=== PATIENT | female | born 1945 | race Caucasian/White ===

== ENCOUNTER 2018-03-12 08:15 | Observation (INO) | payer OTHER ==
[~2018-03-12] VITALS: Ht 161.3 cm; Wt 64.1 kg
[~2018-03-12 08:15] MED LIST: ASPI325T33 PO; ATOR40TA16 PO; LISI-519 PO; VITA100064 PO
[2018-03-12] MEDS ORDERED: ceFAZolin 1,000 MG/NS 100 ML IV SCH ×2 (08:45)
[2018-03-12] MEDS ORDERED: LACTATED RINGER'S 1000 ML IV PRN (08:45)
[2018-03-12] MEDS ORDERED: HEPARIN SODIUM - SQ 10,000 UNITS/ML VIAL SQ SCH (08:45)
[2018-03-12] MEDS ORDERED: METOPROLOL TARTRATE 25 MG TAB PO PRN (08:45)
[2018-03-12] MEDS ORDERED: POVIDONE IODINE 5% (ANTISEPSIS KIT) 4 APPLICATIONS EACH NARE PRN (08:45)
[2018-03-12] MEDS ORDERED: SODIUM CHLORID 0.9% 500 ML IV PRN (08:45)
[2018-03-12] MEDS ORDERED: INSULIN HUMAN REGULAR 1,000 UNITS/10 ML VIAL SQ PRN (08:45)
[2018-03-12] MEDS ORDERED: CHLORHEXIDINE GLUCONATE 2 % 1 PACK (2 CLOTHS) TOPICAL PRN (08:45)
[2018-03-12] MEDS ORDERED: ACETAMINOPHEN 1000 MG/100 ML 100 ML IV ONE (09:21)
[2018-03-12] MEDS ORDERED: HYDROmorphone HCL PF 2 MG/ML VIAL ONE (09:21)
[2018-03-12] MEDS ORDERED: SUGAMMADEX SODIUM 200 MG/2 ML VIAL IV PUSH ONE (09:21)
[2018-03-12] MEDS ORDERED: DEXAMETHASONE SOD PHOS 4 MG/ML VIAL IV ONE (12:00)
[2018-03-12] MEDS ORDERED: KETOROLAC TROMETHAMINE 30 MG/ML (IVP) VIAL IV PUSH ONE (12:00)
[2018-03-12] MEDS ORDERED: ONDANSETRON HCL 4 MG/2 ML VIAL IV ONE (12:00)
[2018-03-12] MEDS ORDERED: ePHEDrine/NS 25 MG/5 ML SYRINGE IV ONE (12:00)
[2018-03-12] MEDS ORDERED: PROPOFOL 200 MG/20 ML AMP IV ONE (12:00)
[2018-03-12] MEDS ORDERED: PHENYLEPH/NS 1000 MCG/10 ML SYR IV ONE (12:00)
[2018-03-12] MEDS ORDERED: ceFAZolin INJ 1,000 MG VIAL IV ONE (12:00)
[2018-03-12] MEDS ORDERED: ROCURONIUM INJ 50 MG/5 ML SYRINGE IV PUSH ONE (12:00)
[2018-03-12] MEDS ORDERED: LIDOCAINE HCL 1% PF 5 ML SYRINGE OTHER ONE (12:00)
[2018-03-12] MEDS ORDERED: SODIUM CHLOR 0.9% 1000 ML INJ 3,000 ML IV ONE (12:00)
[2018-03-12] MEDS ORDERED: LIDOCAINE 1%/EPINEPHrine 1:100,000 SOLN 30 ML VIAL ONE (12:36)
[2018-03-12] MEDS ORDERED: diphenhydrAMINE HCL 25 MG CAP PO PRN (14:00)
[2018-03-12] MEDS ORDERED: oxyCODONE/ACETAMINOPHEN 5 MG/325 MG TAB PO PRN ×2 (14:00)
[2018-03-12] MEDS ORDERED: LORazepam 0.5 MG TAB PO PRN (14:00)
[2018-03-12] MEDS ORDERED: SODIUM CHLORIDE 0.9% FLUSH 10 ML FLUSH IV FLUSH PRN (14:00)
[2018-03-12] MEDS ORDERED: DO NOT ADM ANY ANTICOAGULANT DRUGS PRN (14:01)
[2018-03-12] MEDS ORDERED: ONDANSETRON ODT 4 MG TAB PO PRN (14:30)
[2018-03-12] MEDS: KETOROLAC TROMETHAMINE 30 MG/ML (IVP) VIAL IVP SCH ×2 (14:58→21:06)
[2018-03-12] MEDS: D5-1/2 NS + KCL 20 MEQ INJ 1,000 ML IV SCH (14:59)
[2018-03-12 16:18] VITALS: BP 116/68; PULSE 76; RESP 14; TEMP 97.4; O2SAT 98
[2018-03-12 19:41] VITALS: BP 113/72; PULSE 73; RESP 18; TEMP 97.5; O2SAT 97
[2018-03-12] MEDS: SODIUM CHLORIDE 0.9% FLUSH 10 ML FLUSH IV FLUSH SCH (21:08)
[2018-03-13 00:33] VITALS: BP 99/53; PULSE 76; RESP 16; TEMP 98.3; O2SAT 95
[2018-03-13] MEDS: D5-1/2 NS + KCL 20 MEQ INJ 1,000 ML IV SCH ×2 (00:33→09:53)
[2018-03-13] MEDS: KETOROLAC TROMETHAMINE 30 MG/ML (IVP) VIAL IVP SCH ×2 (02:47→08:14)
[2018-03-13 04:26] VITALS: BP 103/65; PULSE 78; RESP 16; TEMP 98.6; O2SAT 97
[2018-03-13 06:47] LABS: AUTOMATED NEUTROPHIL # 5.9 TH/MM3 (1.8-7.7); BASOPHIL % 0.3 % (0.0-2.0); HEMATOCRIT 32.5 % (35.0-46.0); HEMOGLOBIN 10.9 GM/DL (11.6-15.3); LYMPH % 14.3 % (9.0-44.0); LYMPHOCYTE # 1.1 TH/MM3 (1.0-4.8); MEAN CELL VOLUME 88.2 FL (80.0-100.0); MEAN CORPUSCULAR HEMOGLOBIN 29.6 PG (27.0-34.0); MEAN CORPUSCULAR HGB CONC 33.5 % (32.0-36.0); MEAN PLATELET VOLUME 8.7 FL (7.0-11.0); MONO % 6.4 % (0.0-8.0); MONOCYTE # 0.5 TH/MM3 (0-0.9); PLATELET COUNT 175 TH/MM3 (150-450); RED BLOOD COUNT 3.69 MIL/MM3 (4.00-5.30); RED CELL DISTRIBUTION WIDTH 13.5 % (11.6-17.2); WHITE BLOOD COUNT 7.5 TH/MM3 (4.0-11.0)
[2018-03-13 06:58] LABS: BICARBONATE 24.2 MEQ/L (21.0-32.0); CALCIUM 7.4 MG/DL (8.5-10.1); CREATININE 0.77 MG/DL (0.50-1.00)
[2018-03-13 07:17] LABS: CALCIUM-PROTEIN CORRECTED 8.5 MG/DL (8.5-10.1); TOTAL PROTEIN 5.2 GM/DL (6.4-8.2)
[2018-03-13] MEDS ORDERED: OXYC1TAB63 PO (07:26)
[2018-03-13 08:03] VITALS: BP 112/64; PULSE 75; RESP 18; TEMP 98.6; O2SAT 98
--- NOTE | 2018-03-13 08:05 | MD ---
cc: Mai Rosen MD, Esther MD DATE OF DISCHARGE: 03/13/2018 PROCEDURE: 03/12/2018, robotic-assisted laparoscopic hysterectomy, bilateral salpingo-oophorectomy (with resection of bilateral ovarian masses), extensive lysis of adhesions and ventral herniorrhaphy. HOSPITAL COURSE: She did well in the early postoperative period. She remained hemodynamically stable. She is tolerating oral intake. Perez catheter removed pending voiding. Ins and outs 3300/1975. Labs this morning show an H and H of 10.9 and 32.5. Electrolytes essentially normal, potassium 3.6, creatinine 0.77, protein corrected calcium normal at 8.5. PHYSICAL EXAMINATION: She is afebrile, pulse 73-79, respirations 12-18, blood pressure 99 to 122/53 to 72. O2 saturation greater than or equal to 95%. GENERAL: She is alert in no acute distress. LUNGS: Clear. Mild basilar rales. CARDIOVASCULAR: Regular rate and rhythm. Incisions are clean and dry. ABDOMEN: Nondistended not appreciably tender. GYNECOLOGIC: No bleeding. EXTREMITIES: Nontender. SCDs are intact and in place. ASSESSMENT: Postoperative day number 1, doing well in the early postoperative period. 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 Activities and restrictions reviewed. Questions were asked and answered. She expressed good understanding. PLAN: Anticipate she will reach criteria for discharge to home today. Our office number is again made available. She is to contact your office to schedule a followup in 2 weeks or to contact us sooner should she have any questions or problems. She is to resume prior medications. She will have a prescription for Percocet for pain. Mai Rosen MD KLM/SHANIQUE , 07:31 AM , 08:03 AM
[2018-03-13] MEDS: SODIUM CHLORIDE 0.9% FLUSH 10 ML FLUSH IV FLUSH SCH (08:14)
--- NOTE | 2018-03-13 08:27 | MP ---
cc: Mai Rosen MD, Esther MD DATE OF OPERATION: 03/12/2018 PREOPERATIVE DIAGNOSIS: Complex pelvic mass. POSTOPERATIVE DIAGNOSES: 1. Bilateral complex ovarian masses (cystadenofibromas). 2. Extensive intraperitoneal adhesions. 3. Small ventral hernia. PROCEDURE PERFORMED: Robotic laparoscopic hysterectomy, bilateral salpingo-oophorectomy (with resection of bilateral ovarian masses) extensive lysis of adhesions, right ureterolysis and herniorrhaphy. SURGEON: Mai Rosen MD STAPLE PROCESSING MACHINE OPERATOR: Pepper nurse first aid. ANESTHESIA: General endotracheal anesthesia. ESTIMATED BLOOD LOSS: 200 mL. IV FLUIDS: 2100 mL. URINE OUTPUT: 250 mL. HISTORY: A 72-year-old female found on exam and imaging to have what appeared to be a large complex mass of probable ovarian origin. There was no overt evidence to suggest metastatic disease. She was symptomatic from a sense of abdominal and pelvic pressure and pain. She was counseled regarding options and presented now for surgical management. She was seen in the preop holding area. She was accompanied by her brother. The findings are again reviewed. The plan of care discussed, questions were asked and answered. She expressed good understanding and wished to move forward with surgery. FINDINGS: The uterus sounded to 8 cm. On anatomic review of the peritoneal cavity, there were extensive adhesions with multiple segments of omentum adherent to the anterior abdominal wall. The cecum is adherent to the right lateral abdominal wall and the sigmoid colon and its adjacent mesentery and pericolonic fat are adherent to the left anterior abdominal wall. Some of the pericolonic fat is creating a hernia through a small ventral defect consistent with her prior low transverse abdominal incision. Staple lines are noted in the right lower quadrant in the region of the appendix. Also, keke noted in the left lower quadrant. The extent of her prior bowel surgery are uncertain. She is not able to provide specific historical information. There were no implants on the peritoneal surfaces. The liver diaphragm edges are smooth. The omentum grossly appeared normal. The large and small bowel and adjacent mesentery were without implants. The ovaries sent for frozen section analysis showed cystadenofibromas. No evidence of malignancy. Uterus had no obvious abnormality detected. STATEMENT OF COMPLEXITY/MODIFIER: The complexity of the case and the duration of the case were increased significantly due to the extensive adhesions which required significant time and attention lysing adhesions to gain safe entry to the peritoneal cavity to restore normal anatomy and to accomplish surgical objectives. Modifier should be applied accordingly. PROCEDURE: She was taken to the operating room, placed in the dorsal lithotomy position after general endotracheal anesthesia was administered. A timeout was undertaken. She was identified by site recognition and hospital ID [email or web address] and the proposed procedure was reviewed and confirmed. She was carefully positioned in padded Jaydon stirrups. Her arms were padded and secured to the sides. She was further secured to the operating table with egg crate padding and tape in a cross chest over the shoulder fashion. All sites noted to be properly aligned with no malalignments or pressure points. She was prepped and draped in usual sterile fashion, placed in lithotomy position. The cervix grasped. Uterine cavity sounded. Cervix dilated and a small VCare manipulator was inserted and secured usual fashion. Perez catheter placed in the bladder. She was returned to low lithotomy position. A change sterile gloves was undertaken. We confirmed an orogastric tube in the stomach on suction. With manual elevation of the abdominal wall and direct laparoscopic visualization, 5 mm cannula introduced in the left upper quadrant. Carbon dioxide gas was insufflated and an atraumatic entry was confirmed. An 8 mm cannula placed in the right upper quadrant and blunt and sharp dissection were used to initiate lysis of adhesions to take down the omentum and a loop in the cecum adherent to the anterior lateral abdominal horn and then a 12 mm cannula placed in the midline above the umbilicus and an 8 mm cannula placed in the left upper quadrant. The original 5 exchanged for an 8 mm cannula. Additional lysis of adhesions were carried out. She was placed in Trendelenburg position. Peritoneal washings were obtained for cytology. The anatomy was reviewed with findings as described above. The robotic system was brought into the operative field, attached in the usual fashion. Monopolar scissors, fenestrated bipolar forceps and ProGrasp manipulators were placed in arms 1, 2 and 3 respectively and I took my place at the surgeon's console. Additional lysis of adhesions were carried out now to reduce the sigmoid colon and its pericolonic fat and mesentery from its attachments to the anterior abdominal wall and a hernia with pericolonic fat was reduced from a small defect in the left lower abdominal wall consistent with prior transverse incision. Also noted along the suture line were several other approximately 1 cm defects that did not have any adhesions or persistent hernia sac. One defect had some abdominal wall fat protruding into it and no other attachments. She was asymptomatic from this standpoint. After the adhesions were lysed and the hernia was reduced, retroperitoneal dissection was carried out on the left side to further mobilize the colon from its attachments to the left pelvic sidewall. Retroperitoneal dissection was carried out to allow identification of the left ureter. The left infundibulopelvic ligament was isolated. The intervening peritoneum was opened. The infundibulopelvic ligament was isolated to the level of the pelvic brim where it was cauterized and transected. The mass on the left was partially retroperitonealized which was released with dissection mobilizing the mass from its attachments and the retroperitoneal attachments with dissection and retraction of the ureter posteriorly along its course in the pelvis. Dissection was continued until the mass was elevated and attached only by the utero-ovarian ligament. Attention was directed toward the right side. The right round ligament, isolated, cauterized, and transected. The anterior and posterior leafs of the broad ligament were opened. Adhesions were noted as this mass was also partially retroperitonealized and fixed against the right pelvic sidewall. Dissection allowed identification of the right ureter and the infundibulopelvic ligament was isolated. The intervening peritoneum was opened. The infundibulopelvic ligament was isolated to the level of the pelvic brim where it was cauterized and transected. Ureterolysis was carried out along the right pelvis as the ureter with blunt dissection and sharp dissection was isolated from its attachments to the posterolateral aspect of this mass until its course was freed along the pelvis. Additional dissection was carried out to mobilize the right ovary circumferentially until it was attached only by the right uteroovarian ligament. It is estimated that the mass on the left side was approximately 13-14 cm in diameter. The mass on the right side was approximately 5 cm in diameter. Both were complex in nature and grossly had the appearance suggestive of cystadenofibromas. Adhesions in the cul-de-sac were lysed. The posterior peritoneum was opened on the right and left side of the uterus and cervix and the right and left vesicouterine peritoneum was dissected off the lower uterine segment and cervix and the uterine vessels were skeletonized bilaterally. The right uterine vessels were cauterized and transected as were the cardinal, paracervical and uterosacral ligaments thereby freeing the attachments along the right side of the uterus and cervix. Attention was directed toward the left side where the left uterine vessels were isolated, cauterized, transected, as were the cardinal, paracervical and uterosacral ligament, thereby freeing the attachments along the left side of the uterus and cervix. Circumferential colpotomy was performed the cervix from the upper vagina. The specimen was drawn into the vagina. The left ovarian mass was from the uterus by transecting the left uteroovarian ligament. The specimen was withdrawn transvaginally which included uterus, cervix and the attached right tube and ovary. A 15 cm Endo Catch bag was introduced to deliver the left ovarian specimen. It was brought out to the pelvic outlet. The fluid component was drained within the bag to help reduce the size and eventual delivery transvaginally and a pneumo-occluder balloon was placed in the vagina to maintain pneumoperitoneum. Instruments, 1 and 3 exchanged for needle drivers as a 0 Vicryl suture was introduced. The vaginal cuff was closed starting at the left corner securing a full thickness including the uterosacral ligament and posterior peritoneum, tied via instrument tie. The full-thickness closure was held on traction as a running continuous closure was carried to the contralateral corner were similarly fixed, secured, tied and the needle was cut and removed. The integrity of the bladder was checked by filling the bladder with saline dyed with methylene blue. There was a good margin between the vaginal cuff suture line and the bladder. No defects in the bladder. Good peristalsis of ureters bilaterally. The bladder was drained. The pelvis was thoroughly irrigated. Small bleeders were rendered hemostatic with bipolar cautery. The fascial defect in the left lower abdominal wall was closed with interrupted [id number] 0 Vicryl sutures which rendered it reapproximated closing the defect and tied via instrument tie, the needles were cut and removed. To assist in continued hemostasis, Surgicel SNoW was placed across the vaginal cuff and the edges of the lateral pelvic sidewall. All sites were hemostatic. Pathology came back showing benign findings and it was felt that all reasonable surgical objectives had been completed. The robotic instruments were removed. The robotic system was disengaged from the operative field. I reentered the bedside under sterile condition. Each of the 3 Ray-Parvin sponges that had been placed around the root of the small bowel mesentery were removed each individually and inspected and noted to be removed in their entirety. Preliminary counts were correct and there were no remaining foreign objects in the peritoneal cavity other than the intentionally placed hemostatic agent. The 12 mm fascial defect was closed with 0 Vicryl sutures using a needle pass fascial closure apparatus, were tied securely which rendered the fascia completely air tight and hemostatic. The remaining cannulas were withdrawn. Carbon dioxide gas was removed. 3-0 Vicryl, subcutaneous, 2-0 Vicryl subcuticular and Steri-Strips were used to close these incisions. She was returned to dorsal lithotomy position. The vaginal cuff was well well-supported and hemostatic; however, there were vaginal lacerations at the apex on the right and left side and these were rendered hemostatic and reapproximated with interrupted [id number] 0 Vicryl sutures. The area was irrigated and then Surgicel SNoW was placed at the vaginal apex to assist in continued hemostasis. There were no remaining foreign objects in the vagina other than the intentionally placed hemostatic agent. She was returned to dorsal supine position. Final counts were correct. She was pending reversal of anesthesia when I left the operating room to precede her to the postanesthesia care unit and to speak to a family member who was waiting in the surgical waiting area. Mai Rosen MD KLM/SHANIQUE , 07:44 AM , 08:27 AM
[2018-03-13] MEDS ORDERED: ATORVASTATIN 40 MG TAB PO SCH (09:00)
[2018-03-13] MEDS ORDERED: LISINOPRIL 5 MG TAB PO SCH (09:00)
== END 2018-03-13 11:00 | disposition home or self-care (01) ==
LOC: HSDC 08:15 → HSDI 13:58 → HCIN 16:27
PROVIDERS: ADMIT Obstetrics & Gynecology Gynecologic Oncology; ATTEND Obstetrics & Gynecology Gynecologic Oncology
DX: D27.1 Benign neoplasm of left ovary (principal); D27.0 Benign neoplasm of right ovary; N85.8 Other specified noninflammatory disorders of uterus; D25.9 Leiomyoma of uterus, unspecified; K66.0 Peritoneal adhesions (postprocedural) (postinfection); N73.6 Female pelvic peritoneal adhesions (postinfective); K43.9 Ventral hernia without obstruction or gangrene; I12.9 Hypertensive chronic kidney disease with stage 1 through stage 4 chronic kidney disease, or unspecified chronic kidney disease; N18.3 Chronic kidney disease, stage 3 (moderate); E78.5 Hyperlipidemia, unspecified; K21.9 Gastro-esophageal reflux disease without esophagitis; Z79.899 Other long term (current) drug therapy; Z79.82 Long term (current) use of aspirin; Z85.828 Personal history of other malignant neoplasm of skin
CPT/HCPCS: 00840; 49652; 58552; 80048; 84155; 85025; 86850; 86900; 86901; 88112; 88307; 88331; 88332; 94150; 96361; 96374; 96376; G0378; J0131; J0690; J1100; J1170; J1644; J1885; J2370; J2405; J3010; J3480; J7030; J7120; S2900